=== PATIENT | female | born 1950 | race Caucasian/White ===

== ENCOUNTER 2017-09-04 12:32 | Observation (INO) | payer BC ==
[2017-09-04] MEDS ORDERED: HUMULIN R 100 UNIT/ML VIAL SC ONE (12:33)
--- NOTE | 2017-09-04 13:46 | Emergency Department Record ---
History of Present Illness - General Chief Complaint: Neck Injury/Pain Stated Complaint: BOTH SHOULDER/NECK/BACK PAIN Time Seen by Provider: 09/04/17 13:40 Source: Patient Mode of Arrival: Ambulatory Limitations: No limitations - History of Present Illness Initial Comments: The patient is here due to upper chest and back pain for 2 months off and on. The pain is sharp and stabbing at times and is intermittently associated with nausea and trouble breathing. Additionally she has been have COMER for months also. There has been no fever, chills, vomiting, diarrhea or cough. The patient has recently seen her PCP for this and was given Xanax. Complaint: Upper back pain Onset/Timin -: Month(s) Place: Home Radiation: Left shoulder, Right shoulder, Upper back, Other Severity: Severe, Constant Severity scale (1-10): 8 Quality: Sharp Consistency: Constant Improves With: None Worsens With: None Associated Symptoms: Other Treatments Prior to Arrival: None - Related Data Home Medications Medication Instructions Recorded Confirmed Last Taken Atenolol [Atenolol] 50 mg PO DAILY 09/04/17 09/04/17 09/04/17 Atorvastatin Calcium 40 mg PO DAILY 09/04/17 09/04/17 09/04/17 Canagliflozin [Invokana] 100 mg PO DAILY 09/04/17 09/04/17 09/04/17 Cholecalciferol (Vitamin D3) 2,000 unit PO DAILY 09/04/17 09/04/17 09/04/17 [Vitamin D3] Furosemide [Lasix] 20 mg PO DAILY 09/04/17 09/04/17 09/04/17 Losartan Potassium [Losartan 100 mg PO DAILY 09/04/17 09/04/17 09/04/17 Potassium] Novolog Mix 70/30 Vial 1 unit SQ BID 09/04/17 09/04/17 Unknown Sertraline HCl [Zoloft] 50 mg PO DAILY 09/04/17 09/04/17 09/04/17 Allergies Allergy/AdvReac Type Severity Reaction Status Date / Time Sulfa (Sulfonamide AdvReac stomach Verified 09/04/17 13:37 Antibiotics) pains Travel Screening - Travel/Exposure Within Last 30 Days Have you traveled within the last 30 days?: No Review of Systems Constitutional: Denies: Chills, Fever Eyes: Denies: Eye discharge ENT: Denies: Congestion Respiratory: Reports: Dyspnea. Denies: Cough Cardiovascular: Reports: Chest pain. Denies: Arrhythmia Endocrine: Reports: Fatigue Gastrointestinal: Denies: Diarrhea Genitourinary: Denies: Dysuria Musculoskeletal: Reports: Back pain Past Medical History - SOCIAL HISTORY Smoking Status: Former smoker Alcohol Use: Rare Drug Use: None - RESPIRATORY Hx Respiratory Disorders: No - CARDIOVASCULAR Hx Cardio Disorders: Yes Hx Hypertension: Yes - NEURO Hx Neuro Disorders: No - GI Hx GI Disorders: Yes Hx Reflux: Yes - Hx Genitourinary Disorders: No - ENDOCRINE Hx Endocrine Disorders: Yes Hx Diabetes: Yes - MUSCULOSKELETAL Hx Musculoskeletal Disorders: No - PSYCH Hx Psych Problems: Yes Hx Anxiety: Yes Hx Depression: Yes - HEMATOLOGY/ONCOLOGY Hx Hematology/Oncology Disorders: No Family Medical History Any Significant Family History?: Yes Hx Cancer: Father *Cancer Comment: father-kidney,lungs Hx Diabetes: Grandparents Hx Heart Disease: Mother *Heart Comment: mother- CT, stents Hx HTN: Mother Physical Exam - General General Appearance: Alert, Oriented x3, Cooperative, No acute distress - Head Head exam: Atraumatic, Normocephalic, Normal inspection - Eye Eye exam: Normal appearance, PERRL - ENT Throat exam: Normal inspection. negative: Tonsillar erythema, Tonsillar exudate - Neck Neck exam: Normal inspection, Full ROM. negative: Tenderness - Respiratory Respiratory exam: Normal lung sounds bilaterally, Chest wall tenderness ( Palpation of the chest wall and upper arms does reprodue the pain 100%.). negative: Respiratory distress - Cardiovascular Cardiovascular Exam: Regular rate, Normal rhythm, Normal heart sounds - GI/Abdominal GI/Abdominal exam: Soft, Normal bowel sounds. negative: Tenderness - Extremities Extremities exam: Normal inspection, Full ROM, Normal capillary refill. negative: Tenderness - Neurological Neurological exam: Alert. negative: Motor sensory deficit Course Vital Signs 09/04/17 13:24 Temperature 97.7 F Pulse Rate 59 L Respiratory 20 Rate Blood Pressure 206/100 Pulse Ox 95 - Reevaluation(s) Reevaluation #1: The patient is doing better at this time. She denies any CP, SOB, or upper back pain. I did explain to her that I am concerned about her symptoms so I did recommend hospital admission. She would like to go to [facility] for admission. 09/04/17 15:48 Reevaluation #2: The patient did take her Insulin for the elevated blood sugar. I did explain to the patient that [facility] does not have any inpatient beds available so the patient would have to go to the ER and wait for a bed for tomorrow. She does not want to do that so I did discuss transferring her to [place] but she is refusing. I then did discuss the issues with Dr. Tse and he is willing to OBV the patient tonight and transfer her tomorrow. I did discuss that with the patient and and they do agree to the plan. 09/04/17 16:34 Medical Decision Making - Data Complexity MDM Data: Labs Ordered and/or Reviewed, X-Ray Ordered and/or Reviewed, EKG Ordered and/or Reviewed - Lab Data Result diagrams: 09/04/17 13:42 09/04/17 13:42 - EKG Data -: EKG Interpreted by Me EKG: Abnormal EKG (NSR at 56, Old anterseptal CT and possible inferior wall ischemia.) - Radiology Data Radiology results: Image reviewed (CXR: Neg.) Disposition Disposition: Admit Clinical Impression: Atypical chest pain Disposition: Still a Patient at [facility] Decision to Admit: Admit from ER Decision to Admit Date: 09/04/17 Decision to Admit Time: 16:37 Accepting Physician: Carmencita Time Discussed w/Accepting Physician: 16:37 Condition: (2) Stable Forms: Patient Portal Access Time of Disposition: 16:37 Quality - Quality Measures Quality Measures: N/A - Blood Pressure Screening View Details: Yes Does Patient Have Any of the Following: No, Active Dx of HTN Blood Pressure Classification: Hypertensive Reading Systolic Measurement: 206 Diastolic Measurement: 100 Screening for High Blood Pressure: Patient Exclusion, Hx of HTN [G9744]
[2017-09-04] MEDS ORDERED: ASPIRIN 325 MG TABLET PO ONE (14:01)
[2017-09-04 14:13] LABS: HEMATOCRIT 45.4 % (35.0-47.0); MEAN CELL VOLUME 87.1 fl (81-97); MEAN CORPUSCULAR HEMOGLOBIN 28.8 pg (27-33); MEAN PLATELET VOLUME 11.6 fl (7.4-10.4); PLATELET COUNT 286 K/uL (130-400); RED BLOOD COUNT 5.21 M/uL (3.80-5.40); RED CELL DISTRIBUTION WIDTH 13.1 % (11.5-14.5); WHITE BLOOD COUNT W/O DIFF 11.9 K/uL (4.2-12.2)
[2017-09-04 14:32] LABS: INR 1.01; PARTIAL THROMBOPLASTIN TIME 26.2 SECONDS (24.5-39.1); PROTHROMBIN TIME (PATIENT) 10.9 SECONDS (9.5-12.1)
[2017-09-04 14:51] LABS: BLOOD UREA NITROGEN 18 mg/dL (8-23); CREATININE 0.9 mg/dL (0.5-0.9); EST GLOMERULAR FILTRATION RATE > 60 mL/min
[2017-09-04 14:57] LABS: CREATINE PHOSPHOKINASE 61 U/L (26-192)
[2017-09-04 15:09] LABS: THYROID STIMULATING HORMONE 1.85 uIU/mL (0.270-4.20)
[2017-09-04 15:22] LABS: GLUCOSE,RANDOM 475 mg/dL (74-109)
[2017-09-04] MEDS ORDERED: HUMULIN R 100 UNIT/ML VIAL IV ONE (15:28)
[2017-09-04] MEDS ORDERED: INSULIN ASPART PROTAMINE SQ SCH (22:00)
[2017-09-04] MEDS ORDERED: INSULIN ASPART SQ SCH (22:00)
[2017-09-04 22:21] LABS: CKMB 6.8 ng/mL (<3.77)
[2017-09-05 00:59] LABS: CKMB RELATIVE INDEX 5.9 % (0-4)
--- NOTE | 2017-09-05 07:19 | RADIOLOGY REPORT ---
EXAM: CHEST, TWO VIEWS HISTORY: INTERMITTENT RETROSTERNAL CHEST PAIN FOR TWO DAYS. SLIGHTLY ELEVATED BLOOD PRESSURE. GASTRIC BYPASS HISTORY. TECHNIQUE: Upright PA and lateral views of the chest were obtained. Comparison: None. FINDINGS: The heart is not grossly enlarged and the pulmonary vasculature is nondilated. The aortic knob is atherosclerotic. The lungs and pleural spaces are clear. There are degenerative changes scattered within the visualized spine. IMPRESSION: NO EVIDENCE OF ACUTE CARDIOPULMONARY DISEASE. DEGENERATIVE CHANGES OF THE THORACIC SPINE. JOB NUMBER: [id number] MTDD
[2017-09-05 07:53] LABS: CKMB RELATIVE INDEX 6.5 % (0-4)
[2017-09-05] MEDS ORDERED: HEPARIN SODIUM 1000 UNIT/1 ML 10ML VIAL IVP ONE (09:08)
[2017-09-05] MEDS ORDERED: HEPARIN SODIUM/D5W 25,000 UNITS/500 ML BAG IV SCH (09:15)
[2017-09-05] MEDS ORDERED: LOSARTAN POTASSIUM 100 MG TABLET PO SCH (10:00)
[2017-09-05] MEDS ORDERED: ATENOLOL 50 MG TABLET PO SCH (10:00)
[2017-09-05] MEDS ORDERED: FUROSEMIDE 20 MG TABLET PO SCH (10:00)
[2017-09-05] MEDS ORDERED: NOVOLOG 70/30 FLEXPEN 100 UNITS/ML SQ SCH ×3 (10:00→20:00)
[2017-09-05] MEDS ORDERED: SERTRALINE HCL 50 MG TABLET PO SCH (10:00)
[2017-09-05] MEDS ORDERED: CANAGLIFLOZIN 100 MG PO SCH (10:00)
[2017-09-05] MEDS ORDERED: ASPIRIN 325 MG TAB ENTERIC-COATED PO SCH (10:00)
[2017-09-05] MEDS ORDERED: ATORVASTATIN 20 MG TABLET PO SCH (10:00)
--- NOTE | 2017-09-05 11:10 | History and Physical Report ---
DATE OF EVALUATION: 09/05/2017 at 7:56 a.m. DATE OF ADMISSION: 09/04/2017 CHIEF COMPLAINT: Atypical chest pain. HISTORY OF THE CHIEF COMPLAINT: This 66-year-old female presented to the Emergency Department and evaluated by Dr. Garcia with atypical chest pain. She stated that she has had a sore right shoulder for the last 2 months. She has seen her doctor, Dr. Monte in [place] for this, and has had physical therapy, which did not seem to help. She also states that in the last few days, she has had some heaviness in her chest and shortness of breath with exertion. It seems like there is no real starting point according to the patient. She had no nausea, no diaphoresis, and no sweating. She had a normal treadmill 4 years ago in [place], she thinks at [facility]. She was admitted to the hospital because of an elevated troponin T and abnormal EKG with T-wave inversions in 2, 3, AVF. They tried to transfer her to [facility], however there were 20 people waiting in the waiting room according to Dr. Garcia and they could not make the transfer, so she was admitted to the hospital here for the night, serial cardiac enzymes, and further evaluation. PAST MEDICAL HISTORY: Diabetes mellitus, hypertension, hypercholesterolemia, GERD. PAST SURGICAL HISTORY: Right shoulder surgery, cyst right ankle, cyst removal of the breast, and cholecystectomy. MEDICATIONS ON ADMISSION: Atenolol 50 mg daily, sertraline 50 mg daily, NovoLog mix 70/30 is 70 units at noontime, 50 units at 8 p.m., losartan 100 mg daily, Lasix 20 mg daily, vitamin D3 2000 units daily, Invokana 100 mg daily, atorvastatin 40 mg daily, ALLERGIES: Sulfa. FAMILY PSYCHOSOCIAL HISTORY: Heart disease with mother. Mother had an NM and stents. Mother has hypertension. Grandparents had diabetes. Cancer in father with kidneys and lungs. She is an ex-smoker. She stopped about 10 years ago. No alcohol or drug use. REVIEW OF SYSTEMS: HEENT: No upper respiratory infection symptoms, cough, cold, or congestion. Cardiovascular: See Chief Complaint. She had shoulder, neck, and back pain and some chest pain. Respiratory: No cough, cold or congestion. Ex-smoker. Gastrointestinal: No nausea, vomiting, diarrhea, black stools, or bloody stools. Genitourinary: No dysuria, hematuria, frequency, or burning on urination. Musculoskeletal: She has some right shoulder pain that has been going on for 2 months. It sounds like osteoarthritis, but she had no trauma to it according to her. Neurologic: No CVA, paralysis, or paresthesias. Gynecologic: No lumps in her breasts or abnormal vaginal bleeding. Endocrine: She has diabetes, but no hypothyroidism. Integument: No rash, ulcers, changes in moles, or yellow skin. PHYSICAL EXAMINATION: VITAL SIGNS: Height is 5'4". Weight is 230 pounds. Temperature is 97.5. Pulse is 53. Blood pressure 157/69. Respiratory rate is 18. Pulse ox is 97% on room air. HEENT: Pupils equal, round, and reactive to light and accommodation. Extraocular muscles intact. Throat is clear. Nose is clear. Tympanic membranes goetz. NECK: Supple. No jugular venous distention. No hepatojugular reflux. No carotid bruits. Thyroid is smooth. CARDIOVASCULAR: Regular rate and rhythm without murmurs, clicks, rubs, or gallops. RESPIRATORY: Clear to auscultation and percussion. ABDOMEN: Soft, nontender, no hepatosplenomegaly. No masses or tenderness. Bowel sounds active. No bruits. EXTREMITIES: No pitting edema. No cyanosis or clubbing. Full range of motion. Peripheral pulses good. BREASTS: Deferred. GYNECOLOGIC: Deferred. RECTAL: Deferred. NEUROLOGIC: Cranial nerves II-XII intact. No gross deficits. Sensation normal. Strength normal. Deep tendon reflexes equal bilaterally. Babinski is negative. MENTAL STATUS: Alert and oriented x3. IMPRESSION: 1. Atypical chest pain. 2. Elevated troponin T. 3. Abnormal EKG with inferior T-wave inversions in 2, 3, AVF. 4. Status post diabetes, status post hypertension, status post hypercholesterolemia, and status post GERD. PLAN: Serial EKGs. Will get another EKG this morning. Serial cardiac enzymes. Two cardiac enzymes troponin T's were elevated, and the CK-MB is elevated along with the cardiac index. At this point, we will be contacting [facility]. It is her request to go to [facility] for further cardiac evaluation, but they were full yesterday. We will see if I can get directly through to the latex spooler and get things set up for her. MTDD
[2017-09-05] MEDS ORDERED: AL HYDROX/MAG HYDROX 30ML UD PO PRN (13:19)
[2017-09-05] MEDS ORDERED: PANTOPRAZOLE SODIUM 40 MG TABLET PO SCH (13:30)
--- NOTE | 2017-09-06 12:40 | Discharge Summary ---
DATE: 09/05/2017 DISCHARGE DIAGNOSES: 1. Non-ST elevated myocardial infarction. 2. Atypical chest pain. 3. Elevated troponin T. 4. Elevated CK-MB. 5. Abnormal EKG, T-wave inversion of II, III, and aVF T waves. 6. Status post diabetes mellitus. 7. Status post hypertension. 8. Status post hypercholesterolemia. 9. Status post gastroesophageal reflux disease. ATTENDING PHYSICIAN: Jason Tse DO REASON FOR HOSPITALIZATION: Atypical chest pain. This 66-year-old female presented to the emergency department and was evaluated by Dr. Garcia for atypical chest pain. She stated that she had a sore right shoulder for the last [address] Rosa in [place] and had physical therapy, which did not help her shoulder. She stated in the last few days she developed some heaviness in her chest, more short of breath with exertion and it seemed to be getting way worse, so she came into the emergency department for evaluation. She denies any nausea, diaphoresis, or sweating. She actually denied chest pain. She states that she had a normal treadmill 4 years ago in [place] by [facility]. She was admitted to the hospital because she had an elevated troponin T and abnormal EKG with T-wave inversion II, III, and aVF. They tried to transfer initially to [facility] where she wanted to go but there were too many people waiting, no beds available, so the patient was admitted for observation under my service at [facility]. She had 2 sets of cardiac enzymes and the second set went up higher. Troponin T went up to 0.122 from 0.108. The CK-MB relative index went up to 6.5. It was 5.9. CK-MB went up from 6.8, to 7.0 and a total creatinine was 115 initially and 107. Chest x-ray showed no evidence of acute cardiopulmonary disease. She does have degenerative changes of the thoracic spine. As stated, EKGs x2 which showed a T-wave inversion at II, II, aVF. She also had abnormal troponin T's and CK-MBs. THERAPY PROVIDED: She has aspirin therapy. She was on a beta anabell from at home, Tenormin 50 mg once a day, and she was started on heparin bolus and drip here in the hospital. Consultation initially called to [facility]. Talked to Dr. Moses. He accepted the patient but he had to go through the hospitalist, talked to the hospitalist, they could not accept the patient because the hospital was full. They were going to transfer to the ER but they could not do that because the patient was in observation at our facility, so at that point they refused the transfer. [facility] the [facility] agreed going to [facility] in [place]. I discussed first the case with Dr. Restrepo and then with Dr. Lion who accepted the patient. We transferred the patient by ambulance to [facility] when one bed was available. She was transferred at about 2:30 p.m. on 09/05/2017. CONDITION ON DISCHARGE: Stable and improved. No current chest pain at this time. JESSE
== END 2017-09-05 14:22 | disposition short-term general hospital (02) ==
LOC: ER 12:32 → MEDSURG 21:31 → INTOOBSV 21:33
PROVIDERS: ADMIT Emergency Medicine; ATTEND Emergency Medicine
DX: R07.89 Other chest pain (principal); E11.9 Type 2 diabetes mellitus without complications; Z79.4 Long term (current) use of insulin; Z87.891 Personal history of nicotine dependence; I10 Essential (primary) hypertension; E78.00 Pure hypercholesterolemia, unspecified; K21.9 Gastro-esophageal reflux disease without esophagitis; R79.89 Other specified abnormal findings of blood chemistry; R94.31 Abnormal electrocardiogram [ECG] [EKG]
CPT/HCPCS: 99285 ×2; 96374; 82550 ×2; 85730; 85610; 82553 ×2; 80048; 36416 ×2; 82948 ×2; 84443; 84484 ×2; 85027; 71046; 93005 ×2; 93010 ×2; G0378 ×2; J1815; 99220